=== PATIENT | male | born 1960 | race Caucasian/White ===

== ENCOUNTER 2019-01-06 18:43 | Emergency (ER) ==
[2019-01-06 18:50] VITALS: TEMP 99.5; BMI 31.5
--- NOTE | 2019-01-06 19:51 | ED.PDOC ---
General ED Provider: Dr. KENDAL CHAN Chief Complaint: Shoulder Pain/Injury Stated Complaint: one day history of right shoulder pain radiating to the right hand and chest pain Time Seen by Physician: 19:45 Mode of Arrival: Wheelchair Information Source: Patient, Family Exam Limitations: No limitations Nursing and Triage Documentation Reviewed and Agree: Yes Does patient meet sepsis criteria?: No System Inflammatory Response Syndrome: Not Applicable Sepsis Protocol: For patient's 13 years and over: Temp is 96.8 and below OR 101 and greater Pulse >90 BPM Resp >20/minute Acutely Altered Mental Status Are patient's symptoms suggestive of a new infection, such as: -Pneumonia -Skin, Soft Tissue -Endocarditis -UTI -Bone, Joint Infection -Implantable Device -Acute Abdominal Infection -Wound Infection -Meningitis -Blood Stream Catheter Infection -Unknown Review of Systems - Review Of Systems Constitutional: Reports: No symptoms Eyes: Reports: No symptoms Ears, Nose, Mouth, Throat: Reports: No symptoms Respiratory: Reports: No symptoms Cardiac: Reports: Chest pain (right side ) GI: Reports: Nausea : Reports: No symptoms Musculoskeletal: Reports: Joint pain Skin: Reports: No symptoms Neurological: Reports: Headache Endocrine: Reports: No symptoms Hematologic/Lymphatic: Reports: No symptoms All Other Systems: Reviewed and Negative Past Medical History - Past Medical History Previously Healthy: Yes Endocrine: Reports: None Cardiovascular: Reports: None Respiratory: Reports: None Hematological: Reports: None Gastrointestinal: Reports: None Genitourinary: Reports: None Neuro/Psych: Reports: None Musculoskeletal: Reports: None Cancer: Reports: None - Surgical History General Surgical History: Reports: None - Family History Family History: Reports: None - Social History Smoking Status: Current every day smoker, Heavy tobacco smoker Hx Substance Use: No Alcohol Screening: None Physical Exam - Physical Exam Appearance: Ill-appearing Ill-appearing: Moderate Pain Distress: Severe Eyes: BART, EOMI Neck: Supple Respiratory: Airway patent, Breath sounds clear, Breath sounds equal, Respirations nonlabored Cardiovascular: RRR, Pulses normal, No rub, No murmur GI/: Soft, Nontender, No masses, Bowel sounds normal, No Organomegaly Musculoskeletal: Normal strength, ROM intact, No edema, No calf tenderness Skin: Warm, Dry, Normal color Neurological: Sensation intact, Motor intact, Cranial nerves intact, Alert, Oriented Psychiatric: Anxious Interpretation - Radiology Interpretation Radiology Interpretation By: Radiologist Radiology Results: Negative Re-Evaluation - Re-Evaluation Time of Re-Evaluation: 22:00 Status: Improved Vital Signs Stable: Yes Pain Level: much improved. Critical Care Note - Critical Care Note Total Time (mins): 30 Course - Course Hematology/Chemistry: 01/06/19 18:45 01/06/19 18:45 Orders, Labs, Meds: Lab Review 01/06/19 01/06/19 01/06/19 18:45 18:45 18:45 WBC 10.95 H RBC 5.61 Hgb 16.4 Hct 49.3 MCV 87.9 MCH 29.2 MCHC 33.3 RDW Coeff of Stephanie 13.4 Plt Count 319 Immature Gran % (Auto) 0.5 Neut % (Auto) 54.0 Lymph % (Auto) 36.3 Rutherford % (Auto) 6.6 Eos % (Auto) 2.1 Baso % (Auto) 0.5 Immature Gran # (Auto) 0.1 Neut # (Auto) 5.9 Lymph # (Auto) 4.0 H Rutherford # (Auto) 0.7 Eos # (Auto) 0.2 Baso # (Auto) 0.1 D-Dimer (Manual) 308.56 Sodium 143.0 Potassium 3.90 Chloride 109.5 H Carbon Dioxide 21.6 L Anion Gap 15.80 BUN 12.0 Creatinine 0.96 Estimated GFR (MDRD) 81.00 BUN/Creatinine Ratio 12.50 Glucose 97.9 Calcium 10.32 H Total Bilirubin 0.60 AST 20.6 ALT 27.1 Alkaline Phosphatase 44.5 Total Creatine Kinase 91.8 Troponin I < 0.012 Total Protein 7.97 Albumin 4.89 Globulin 3.08 Albumin/Globulin Ratio 1.58 01/06/19 21:27 WBC RBC Hgb Hct MCV MCH MCHC RDW Coeff of Stephanie Plt Count Immature Gran % (Auto) Neut % (Auto) Lymph % (Auto) [place]uther[place] % (Auto) Eos % (Auto) Baso % (Auto) Immature Gran # (Auto) Neut # (Auto) Lymph # (Auto) Rutherford # (Auto) Eos # (Auto) Baso # (Auto) D-Dimer (Manual) Sodium Potassium Chloride Carbon Dioxide Anion Gap BUN Creatinine Estimated GFR (MDRD) BUN/Creatinine Ratio Glucose Calcium Total Bilirubin AST ALT Alkaline Phosphatase Total Creatine Kinase Troponin I < 0.012 Total Protein Albumin Globulin Albumin/Globulin Ratio Orders Category Date Time Status EKG-(ED ONLY) Stat CARDIO 01/06/19 19:05 Completed EKG-(ED ONLY) Stat CARDIO 01/06/19 19:45 Completed CBC W/ AUTO DIFF Stat LAB 01/06/19 18:45 Completed COMPREHENSIVE METABOLIC PANEL Stat LAB 01/06/19 18:45 Completed CREATINE KINASE Stat LAB 01/06/19 18:45 Completed D-DIMER Stat LAB 01/06/19 18:45 Completed TROPONIN I Stat LAB 01/06/19 18:45 Completed TROPONIN I Stat LAB 01/06/19 21:27 Completed Hydromorphone HCl [Dilaudid 1 mg/ml Syringe] MEDS 01/06/19 21:17 Discontinued 1 mg IVP ONCE STA Morphine Sulfate [Morphine 2 mg/ml Syringe] MEDS 01/06/19 19:37 Discontinued 2 mg IVP ONCE STA Ondansetron HCl/Pf [Zofran 4 mg/2 ml] MEDS 01/06/19 19:37 Discontinued 4 mg IVP ONCE STA CHEST, 1V AP ONLY Stat RADS 01/06/19 19:31 Completed Medications Discontinued Medications Generic Name Dose Route Start Last Admin Trade Name Freq PRN Reason Stop Dose Admin Hydromorphone HCl 1 mg 01/06/19 21:17 01/06/19 21:24 Dilaudid 1 Mg/Ml Syringe IVP 01/06/19 21:18 1 mg ONCE STA Administration Morphine Sulfate 2 mg 01/06/19 19:37 01/06/19 20:00 Morphine 2 Mg/Ml Syringe IVP 01/06/19 19:38 2 mg ONCE STA Administration Ondansetron HCl 4 mg 01/06/19 19:37 01/06/19 20:00 Zofran 4 Mg/2 Ml IVP 01/06/19 19:38 4 mg ONCE STA Administration Vital Signs: Temp Pulse Resp BP Pulse Ox 01/06/19 21:11 70 137/83 99 01/06/19 19:44 70 142/86 H 95 01/06/19 18:44 99.5 F 74 16 147/85 H 98 Departure - Departure Time of Disposition: 22:03 Disposition: HOME SELF-CARE Discharge Problem: Anterior chest wall pain Instructions: Shoulder Pain (ED), Chest Wall Pain (ED) Condition: Good Pt referred to PMD for follow-up: No IPMP verified?: No Additional Instructions: Follow up with A PCP for further testing Return if worse Take Medications as prescribed for pain Prescriptions: Ibuprofen [Motrin] 600 mg PO Q6H PRN #30 tablet PRN Reason: Analgesia Tramadol HCl [Ultram] 50 mg PO Q6H PRN #14 tablet PRN Reason: Severe Pain Allergies/Adverse Reactions: Allergies codeine Adverse Reaction (Verified 01/06/19 18:53) Home Medications: Ambulatory Orders Famotidine/Ca Carb/Mag Hydrox [Pepcid Complete Tablet Chew] 1 each PO BID Ibuprofen [Motrin] 600 mg PO Q6H PRN #30 tablet 01/06/19 Tramadol HCl [Ultram] 50 mg PO Q6H PRN #14 tablet 01/06/19
[2019-01-06] MEDS: MORPHINE 2 MG/ML SYRINGE IVP STA (20:00)
[2019-01-06] MEDS: ZOFRAN 4 MG/2 ML IVP STA (20:00)
[2019-01-06 21:11] VITALS: BP 137/83
[2019-01-06] MEDS: DILAUDID 1 MG/ML SYRINGE IVP STA (21:24)
--- NOTE | 2019-01-06 21:52 | DI ---
EXAM: Single-view chest HISTORY: Chest pain COMPARISON: None. FINDINGS: The cardiac silhouette is normal in size. Atherosclerotic changes are seen involving the aortic arch.. The lungs are clear bilaterally. No osseous abnormalities are identified. IMPRESSION: No evidence of active pulmonary disease
== END 2019-01-06 22:13 | disposition home or self-care (01) ==
LOC: ED 18:43
DX: M25.511 Pain in right shoulder (principal); M25.541 Pain in joints of right hand; R07.9 Chest pain, unspecified; R51 Headache; Z72.0 Tobacco use
CPT/HCPCS: 36415; 80053; 82550; 84484; 85025; 85379; 93005; 93010; 96374; 96375; 99284